=== PATIENT | female | born 1975 | race Caucasian/White ===

== ENCOUNTER → 2020-02-24 | Outpatient (CLI) | payer SELFPAY | PROVIDERS: Referring Provider Internal Medicine; Visit Provider Internal Medicine | DX: Z23 Encounter for immunization (principal) | CPT/HCPCS: 90471; 90686 ==

== ENCOUNTER → 2020-05-26 11:17 | Outpatient (CLI) | payer OTHER, SELFPAY ==
[2020-05-26] MEDS: COVID-19 VACC(MODERNA-1)/PF 100 MCG/0.5 ML VIAL IM (11:23)
== END ==
PROVIDERS: Visit Provider Internal Medicine
DX: Z23 Encounter for immunization (principal)
CPT/HCPCS: 0011A; 91301

== ENCOUNTER → 2020-06-21 15:08 | Outpatient (CLI) | payer OTHER, SELFPAY ==
[2020-06-21] MEDS: COVID-19 VACC #2, MRNA(MOD) 100 MCG/0.5 ML VIAL IM (15:14)
== END ==
PROVIDERS: Visit Provider Internal Medicine
DX: Z23 Encounter for immunization (principal)
CPT/HCPCS: 0012A; 91301

== ENCOUNTER → 2020-09-06 09:10 | Outpatient (CLI) | payer OTHER, SELFPAY ==
[2020-09-06 09:48] LABS: Hematocrit 37.3 % (36-46); Hemoglobin 12.8 g/dL (12.0-16.0); Mean Corpuscular HGB Conc 34.5 % (30-36); Mean Corpuscular Hemoglobin 30.8 PG (26-34); Mean Corpuscular Volume 89.4 fL (80-100); Platelet Count 268 X10^3/uL (150-400); Red Blood Cell Count 4.17 X10^6/uL (4.0-5.2); Red Cell Distribution Width 13.5 % (11.6-14.8); White Blood Cell Count 6.9 X10^3/uL (4.5-11.0)
[2020-09-06 10:05] LABS: Alanine Aminotransferase 15 IU/L (<35); Albumin 4.4 g/dL (3.5-5.0); Albumin Globulin Ratio 1.3 (1.0-2.8); Alkaline Phosphatase 110 U/L (38-126); Aspartate Aminotransferase 22 IU/L (14-36); BUN Creatinine Ratio 27.4 (6-22); Bilirubin Total 0.5 mg/dL (0.2-1.3); Blood Urea Nitrogen 17 mg/dL (7-17); Calcium 9.6 mg/dL (8.4-10.2); Carbon Dioxide 28 mmol/L (22-32); Chloride 104 mmol/L (98-107); Cholesterol 224 mg/dL (140-199); Estimated Glomerular Filt Rate > 60.0 mL/min (>60); Globulin 3.5 g/dL (1.7-4.1); Glucose 100 mg/dL (70-100); HDL Cholesterol 56 mg/dL (40-60); HEMOLYSIS < 15 (0-50); LDL Cholesterol Calculated 153 mg/dL (<100); Potassium 4.2 mmol/L (3.4-5.1); Sodium 140 mmol/L (137-145); Total Protein 7.9 g/dL (6.3-8.2); Triglycerides 73 mg/dL (35-150)
[2020-09-06 10:35] LABS: Free T4, Direct Thyroxine 1.12 ng/dL (0.78-2.19)
[2020-09-06 10:49] LABS: Thyroid Stimulating Hormone 2.36 uIU/mL (0.47-4.68)
== END ==
PROVIDERS: PCP Nurse Practitioner Family; Referring Provider Nurse Practitioner Family; Visit Provider Nurse Practitioner Family
DX: Z00.00 Encounter for general adult medical examination without abnormal findings (principal); E06.3 Autoimmune thyroiditis; Z13.6 Encounter for screening for cardiovascular disorders
CPT/HCPCS: 36415; 80053; 80061; 84439; 84443; 85027

== ENCOUNTER → 2020-11-07 15:01 | Outpatient (CLI) | payer OTHER, SELFPAY ==
--- NOTE | 2020-11-07 15:02 | DI.US.S_ITS ---
PROCEDURE: US PELVIC COMPLETE INDICATIONS: abnormal menses TECHNIQUE: Real-time scanning was performed of the pelvic organs, with image documentation. Additional endovaginal scanning was necessary due to incomplete visualization of the adnexal and endometrial structures by transabdominal scanning. COMPARISON: Outside Facility, RG, US PELVIC, 07/27/2018, 13:39. FINDINGS: Uterus: Uterus is anteverted measuring 8.9 x 6.9 x 5.5 cm. The endometrium measures 15.4mm in combined thickness. Multiple mild medial cysts are seen measuring up to 5 mm. There is increased vascularity on Doppler ultrasound in myometrium. Trace amount of anechoic fluid in the endocervical canal. Ovaries: Right ovary measures 3.3 x 2.0 x 2.4 cm. There is a dominant cyst in the right ovary measuring 1.9 x 1.6 cm. Left ovary is not visualized. Other: No pathologic free abdominal or pelvic fluid. IMPRESSION: 1. Thickened endometrium measuring 15.4 mm, which may be secondary to endometrial hyperplasia but endometrial neoplasm cannot be excluded. 2. Multiple myometrial cysts are present. There is increased vascularity in myometrium. The ultrasound findings suggest cystic adenomyosis. If clinically indicated, gynecological MRI may be helpful. 3. Right ovary is normal and contains a dominant follicle. Left ovary is not visualized. Dictated by: Stephen Sandhu M.D. on 11/07/2020 at 17:07 Approved by: Stephen Sandhu M.D. on 11/07/2020 at 17:17
== END ==
PROVIDERS: PCP Nurse Practitioner Family; Referring Provider Nurse Practitioner Family; Visit Provider Nurse Practitioner Family
DX: N92.0 Excessive and frequent menstruation with regular cycle (principal); R93.89 Abnormal findings on diagnostic imaging of other specified body structures; N85.8 Other specified noninflammatory disorders of uterus
CPT/HCPCS: 76830; 76856

== ENCOUNTER → 2021-02-01 13:25 | Outpatient (CLI) | payer OTHER, SELFPAY ==
[2021-02-01 14:02] LABS: COVID19 -Nasal RAPID Negative (Negative)
== END ==
PROVIDERS: PCP Nurse Practitioner Family; Visit Provider Specialist
DX: Z01.812 Encounter for preprocedural laboratory examination (principal); Z20.822 Contact with and (suspected) exposure to COVID-19
CPT/HCPCS: 87635

== ENCOUNTER 2021-02-02 08:34 | Day surgery (SDC) | payer OTHER, SELFPAY ==
[2021-02-01 07:51] VITALS: BMI 38.6
[2021-02-02] VITALS (19 sets, daily range): BP systolic 119–167; BP diastolic 65–92; PULSE 58–101; RESP 8–20; TEMP 36.2–37; O2SAT 94–100; BMI 38.6
--- NOTE | 2021-02-02 | PATH_ITS ---
[facility] Accession Number: [id number] . 01 Material submitted: . uterus - UTERUS, BILATERAL FALLOPIAN TUBES AND OVARIES . 01 Clinical history: . OPB . 02 Diagnosis: Uterus, Bilateral Fallopian Tubes and Ovaries, Supracervical Hysterectomy and Bilateral Salpingo-oophorectomy: 1. Adenomyosis. 2. Bilateral fallopian tubes with vascular congestion, consistent with prior procedure. 3. Bilateral ovaries with no diagnostic abnormality. 4. No evidence of malignancy or atypical hyperplasia. [facility] 02/06/2021 1115 Local . 02 Electronically signed: . Tess Olivarez MD, Pathologist NPI- [id number] . 01 Gross description: . The specimen is received in formalin, labeled uterus, bilateral fallopian tubes and ovaries, and consists of a 150 g fragmented uterus and detached ovaries and fallopian tubes. The uterus measures 13.0 x 10.0 x 7.0 cm in aggregate. The serosa is prasad-pink and smooth. A cervix is not identified. Sectioning reveals a prasad-pink endometrium measuring 0.1 cm in thickness. The myometrium is prasad-pink and trabeculated. There are two detached ovaries measuring 2.0 x 2.5 x 1.2 cm and 4.1 x 2.0 x 0.9 cm. The external surfaces are prasad cerebriform. Sectioning reveals multiple prasad-pink, smooth-walled, serous-filled cysts ranging from 0.1 cm to 1.4 cm. No papillary excrescences are identified. The smaller ovary has an attached fallopian tube measuring 5.0 cm in length by 0.8 cm in diameter. There is an additional detached fallopian tube measuring 5.0 cm in length by 0.8 cm in diameter. The serosa is prasad-pink to pink-purple and smooth with fibrinous adhesions and multiple paratubal cysts measuring 0.1 cm. Loom Checker sections are submitted. . A1-A5: Loom Checker uterus. A6: Loom Checker ovary with attached fallopian tube. A7: Loom Checker attached fallopian tube, central cross-sections, and bisected fimbriae. A8: Loom Checker sections of other ovary. A9: Loom Checker sections of detached fallopian tube, central cross-sections, and bisected fimbriae. ([id number]) /[facility] 02/03/2021 [facility] Local . 02 Pathologist provided ICD-10: N92.0 . 02 CPT . 499404 Performed at: 01 [facility] [address] [place] [address], [place], [place] [id number] MD Cristofer Milian MD Phone: [phone] Performed at: 02 [facility] [address] [place], [place] [id number] MD Tess Olivarez MD Phone: [phone]
--- NOTE | 2021-02-02 09:22 | PM.PREOP ---
Pre-operative Note COVID-19 COVID-19 status: Negative Result date/Date tested (Pos, Neg/Pending): 02/01/21 Interval Note History & Physical reviewed/Exam performed by Physician: Yes Changes to H&P: No
[2021-02-02] MEDS: ACETAMINOPHEN 325 MG TABLET 975 MG PO (09:27)
[2021-02-02] MEDS: LACTATED RINGERS 1,000 ML 42 ML IV (09:28)
[2021-02-02] MEDS: CEFAZOLIN 1 GM VIAL 2 GM IV (10:10)
--- NOTE | 2021-02-02 10:25 | SUR.OPER ---
Lithotomy on padded OR bed. Redfield Pad Positioner under torso. Head on pillow, arms padded and tucked at sides. Legs secured in padded yellow fins stirrups.
[2021-02-02] MEDS: ROPIVACAINE 0.2% PF 2 MG/ML 10ML AMP 10 ML INJ (10:30)
[2021-02-02] MEDS: EPINEPHrine 1 MG/ML 0.15 MG INJ (10:31)
[2021-02-02] MEDS: BUPIVACAINE 0.5% (PF) VIAL 30 ML INJ (10:32)
[2021-02-02] MEDS: LACTATED RINGERS 1,000 ML 100 ML IV ×3 (11:14→15:11)
--- NOTE | 2021-02-02 11:42 | P.OP_ITS ---
Operative Date/Time/Diagnoses Date of procedure: 02/02/21 Time of procedure: 11:42 Pre-op diagnosis: Menorrhagia and dysmenorrhea Post-op diagnosis: same Procedure & Clinicians Procedure: Laparoscopic supracervical hysterectomy with bilateral salpingo oophorectomy Same procedure as scheduled: Yes Indications: Patient with menorrhagia and dysmenorrhea requesting hysterectomy. Surgeon: Melissa Fitzgerald Clinical Trials Assistant: Jose Carlos Conrad Click Yes if Unassisted: No Anesthesia Type: General Operative Notes Findings: Enlarged boggy uterus, status post tubal ligation, possible endometr iosis, benign appearing left ovarian cyst. Normal appearing bowel surface, appendix, liver edge. Closure Type: primary Specimen(s): other (Uterus above the level of the bladder and bilateral tubes and ovaries) Estimated Blood Loss (mL): 20 Blood products transfused: none Procedure in detail: Patient is brought to the operating room where she underwent general anesthesia and placed in low [facility] stirrups. She was prepped and draped in the usual sterile fashion. A check list was reviewed with the staff in the room prior to beginning of the case. Patient had pulsatile stockings in place and functional. 2 g of Ancef were in prior to beginning of the case.. A Fonseca catheter was placed. A single-tooth tenaculum was placed on the anterior lip of the cervix and the cervix dilated to a #6 Hegar dilator. The uterine manipulator was placed through the cervix into the uterus with the balloon inflated with 3 mL of air. The area of the umbilical incision and the 5 mm right and left lower quadrant incisions were injected with Marcaine. An incision was made with scalpel. The verries needle was placed into the abdomen and confirmed in the appropriate place with withdrawal on a syringe and then free flow of fluid down through the needle. The abdomen was insufflated with CO2. The needle was removed and a 5 mm trocar placed without difficulty. There did not appear to be any damage is placement of the trocar. The right and left lower quadrant incisions were made with the scalpel and the trochars placed without damage to internal structures. The PK forceps were used to cauterize the infundibulopelvic ligaments. Sequential bites were taken along the broad ligament followed by the round ligaments on both sides. Sequential bites were taken down the broad ligaments. The uterine arteries were cauterized. An incision was made above the level bladder pushing the bladder away from the cervix. The ABDIAZIZ loop was placed around the uterus and the uterus was amputated above the level of the bladder. Bleeding was controlled with the PK forceps. The PK forceps were used to cauterize in the endocervical canal. A supracervical incision was made and an 11 mm port placed. A 15 mm Endo Catch bag was placed in the abdomen. The uterus, tubes and ovaries were placed in the bag and brought up through the suprapubic port site. The Girma O was placed. The uterus was hand morselized. The abdomen was reinsufflated and adequate hem ostasis was noted. 20 cc of ropivacaine were placed over the cervix stump. The trocars were removed and the CO2 allowed escape from the abdomen. The fascia layer of the suprapubic site was repaired with 0 Polysorb suture. Skin was closed with 4-0 Monocryl suture at the suprapubic site and the other 3 sites. The patient went to recovery room in good condition. Counts of instruments and sponges were correct. Dr. Conrad was present throughout the case to assist with holding the camera, retracting, cauterizing and cutting the structures on the left side of the patient, as well as assisting with morselization of the uterus. Complications: none Post-operative Condition: stable Disposition: Acute Care (Observation) Plan for aftercare: Home when ambulatory and tolerating regular diet
[2021-02-02] MEDS: LACTATED RINGERS 1,000 ML 120 ML IV (13:41)
--- NOTE | 2021-02-02 15:17 | PC.NURSE ---
Pt arrived at 1240 to room 222 via bed. Lethargic but A&OX3, on RA. LS CTA, BS +x4. x4 lap sites to abdomen C/D/I dressings. Celestina pad with scant amount of blood. Pt tolerating ice chips and juice denies n/v. VSS, on RA. LR at 100 ml/hr. Pt denies pain, or need for prn medications.
[2021-02-02] MEDS: KETOROLAC 30 MG/ML VIAL IV ×2 (15:47→22:00)
[2021-02-02] MEDS: ONDANSETRON 4 MG/2 ML INJ IV (15:49)
[2021-02-02] MEDS: DOCUSATE 100 MG CAPSULE 200 MG PO (20:06)
--- NOTE | 2021-02-02 23:32 | PC.NURSE ---
Patient is alert and oriented. Breath sounds CTA with RA sat of 98%. HRR w/BP consistently high and currently at 147/89. Denies nausea. BT hypoactive and denies passing flatus as yet. Denies dysuria, frequency or urgency with urination. Is able to move self in bed and is up to bathroom independently and is steady on feet. Bandaid dressings to abdomen intact with small spots of drainage on all except umbilical dressing. Chronic puffiness bilateral feet/ankles. Refuses SCD's so reminded to ankle wave when awake. Denies pain. Fall risk score is low.
[2021-02-03] MEDS: KETOROLAC 30 MG/ML VIAL IV (03:47)
[2021-02-03] MEDS: SODIUM CHLORIDE 0.9% FLUSH 10 ML IV (03:47)
[2021-02-03 04:35] VITALS: BP 131/71; PULSE 77; RESP 18; TEMP 37; O2SAT 97
[2021-02-03] MEDS: LEVOTHYROXINE 75 MCG TABLET PO (05:36)
[2021-02-03 05:38] LABS: Add Manual Diff / Slide Review NO; Basophils Absolute Auto 100 /uL (0-100); Basophils Percent Auto 0.6 % (0-2); Eosinophils Absolute Auto 0 /uL (0-450); Hematocrit 34.4 % (36-46); Hemoglobin 11.2 g/dL (12.0-16.0); Lymphocytes Absolute Auto 1600 /uL (1100-4500); Lymphocytes Percent Auto 11.8 % (25-40); Mean Corpuscular HGB Conc 32.5 % (30-36); Mean Corpuscular Hemoglobin 27.1 PG (26-34); Mean Corpuscular Volume 83.4 fL (80-100); Monocytes Absolute Auto 800 /uL (0-900); Neutrophils Absolute Auto 10800 /uL (1500-7000); Neutrophils Percent Auto 81.6 % (50-75); Platelet Count 278 X10^3/uL (150-400); Red Blood Cell Count 4.12 X10^6/uL (4.0-5.2); Red Cell Distribution Width 14.7 % (11.6-14.8); White Blood Cell Count 13.2 X10^3/uL (4.5-11.0)
[2021-02-03 07:00] VITALS: O2SAT 98
[2021-02-03 07:13] VITALS: BP 132/89; PULSE 80; RESP 18; TEMP 36.6; O2SAT 98
--- NOTE | 2021-02-03 09:11 | P.DS_ITS ---
History of Present Illness History of Present Illness Date Patient Seen: 02/03/21 Time Patient Seen: 09:11 Chief complaint: OPB Narrative: Patient underwent a laparoscopic supracervical hysterectomy with bilateral salpingoophorectomy on 02/02/2021. Discharge Providers Provider Discharge Date: 02/03/21 Primary care physician: RENATO Trevizo Discharge provider: Melissa Fitzgerald MD Summary Hospital Course Discharge Diagnosis: Menorrhagia and dysmenorrhea status post laparoscopic supracervical hysterectomy with bilateral salpingo oophorectomy. Hospital Course: Patient underwent a laparoscopic supracervical hysterectomy with bilateral salpingoophorectomy on 02/02/2021. She had some initial nausea and unsteadiness after surgery. She is now tolerating regular diet, urinating well, pain is minimal. Status at Discharge Cognitive/behavioral status at discharge: oriented Functional status at discharge: independent ambulation Overall status at discharge: patient is progressing back to baseline Time Spent with Patient Time spent: Less than 30 minutes Exam Vital Signs (past 8 hours): - 02/03/21 04:35 02/03/21 07:13 Temperature 98.6 F 97.9 F Pulse Rate 77 80 Respiratory Rate 18 18 Blood Pressure 131/71 132/89 Pulse Oximetry 97 98 Oxygen Delivery Method Room Air Oxygen Flow Rate 0 Narrative Exam Narrative: Abdomen is soft, nontender. Dressings are clean, dry, intact. Extremities without edema and nontender. Objective Labs Result Diagrams: 02/03/21 05:16 Labs: Laboratory Results - last 24 hr 02/03/21 05:16 WBC 13.2 H RBC 4.12 Hgb 11.2 L Hct 34.4 L MCV 83.4 MCH 27.1 MCHC 32.5 RDW 14.7 Plt Count 278 Neut % (Auto) 81.6 H Lymph % (Auto) 11.8 L Mason % (Auto) 6.0 Eos % (Auto) 0.0 L Baso % (Auto) 0.6 Neut # (Auto) 95599 H Lymph # (Auto) 1600 Mason # (Auto) 800 Eos # (Auto) 0 Baso # (Auto) 100 PFSH Medical History (Updated 11/07/20 @ 17:21 by RENATO Trevizo) Abnormal mammogram of left breast (04/2020) Acquired autoimmune hypothyroidism (2015) Encounter for routine gynecological examination (10/18/20) Encounter for wellness examination in adult (10/18/20) Endometrial thickening on ultrasound (10/2020) Heavy menses (03/2020) Mixed hyperlipidemia (08/2020) Ovarian cyst (10/2020) Surgical History (Updated 02/02/21 @ 11:39 by Melissa Fitzgerald MD) Anesthesia History of tonsillectomy History of tubal ligation Family History (Updated 09/27/20 @ 18:53 by Shaniqua Larsen) Father History of heart disease Mother Hyperlipidemia Hypertension Grandfather History of heart disease Hypertension Hyperlipidemia Grandmother History of heart disease Hyperlipidemia Hypertension Grandfather History of heart disease Grandmother Hypertension Hyperlipidemia Social History household members: family Smoking Status: Never smoker second hand exposure: No alcohol intake: never substance use type: does not use Discharge Assessment & Plan Assessment and Plan Assessment: Status post laparoscopic supracervical hysterectomy with bilateral salpingo oophorectomy doing well Plan of Treatment: Discharge home to follow-up in 1 week. Precautions reviewed with the patient. Discharge Plan Discharge Plan Patient Disposition: Home Discharge orders & Medications Discharge Orders: Discharge (Order); Ordered 02/03/21 Ordered By: Melissa Fitzgerald Prescriptions: Continued levothyroxine 75 mcg tablet 75 mcg PO DAILY Qty: 90 RF: 2 estradiol 1 mg tablet 1 mg PO DAILY Qty: 30 RF: 11 oxycodone-acetaminophen 5-325 mg tablet 1 tab PO Q4-6H PRN (Reason: pain) Qty: 30 RF: 0 ibuprofen 100 mg Tablet 200 mg PO Q6H PRN (Reason: Pain (Scale Score 7-10)) RF: 0 Follow up/Referrals: Mya Husain ARNP [Primary Care Provider] - Melissa Fitzgerald MD [Physician] - As previously scheduled ( 02/08/2021) Diet/Activity/Treatments Diet: Regular Activity: No restrictions Skin/Wound/Dressing Care Report to your healthcare provider any signs of infection, such as:: chills, fever, night sweats and unusual redness Visit Report/Discharge Packet Instructions: DI for Hysterectomy, DI for Laparoscopy Discharge Data Primary Care Provider: Mya Husain Attending Provider: Melissa Fitzgerald
[2021-02-03 09:22] VITALS: O2SAT 100
[2021-02-03] MEDS: DOCUSATE 100 MG CAPSULE 200 MG PO (09:27)
--- NOTE | 2021-02-03 10:24 | PC.NURSE ---
Discharge note: pt home today, Dr Fitzgerald came in to see her already. IV discontinued. Discharge packet printed and reviewed with patient, including activity restrictions. care of lap sites, follow up appt, safety while taking narcotic pain meds, constipation associated with pain med use. Instructed on which meds to continue. Left acute care in stable condition. Mom in car, driving patient home. Pt already had her mom pick up driver her discharge medications (Oxycodone).
--- NOTE | 2021-02-03 11:05 | CM.DANOTE ---
DCP: Case received, EMR reviewed and met with patient. Introduced self and role. Was able to obtain information regarding patient's baseline activity prior to hospitalization. DCP assessment completed with information currently available. Patient is a 45 year old female who admitted yesterday morning to the care of the hospitalist team. PCP: RENATO Trevizo. Provider: [facility]. Patient came to the hospital for a surgical procedure. She had a laparoscopic supra cervical hysterectomy. Patient has had history of menorrhagia with dysmenorrha. Met with patient in her room. She was sitting up in her chair, ready to go home. 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 She stated that she lives here in [place] with her mother, Sandra Suarez, who is a nurse and will be assisting her for any needs when she goes home. Patient is originally from [place], but wanted to be near her mother. P: Patient is to be discharged home today with no needs. Rosa Weller RN/Mining And Quarrying Machinery Repairer Discharge Planning/Care Management Advanced directive, confirm from FAMILY Start: 02/02/21 13:38 Freq: Q24H Status: Discharge Protocol: Document 02/02/21 13:38 AGW (Rec: 02/02/21 18:40 AGW [id number]) Advance Directive, confirm on record Time 16:00 Person contacted patient Copy received No CM Discharge Assessment Start: 02/03/21 11:03 Freq: Status: Active Protocol: Document 02/03/21 11:03 (Rec: 02/03/21 11:05 [id number]) Discharge Planning Assessment Assigned Mold Press Operator Rosa Weller RN/Mining And Quarrying Machinery Repairer Advance Directives? No Advance Directives on File No History Provided By Patient,Medical Record Prior Living Arrangements Apartment/Condo Household Members family Type of transporation used prior to Drives own vehicle admit Independent with ADL's Yes Is patient alert and oriented? Yes Caregiver for Another No Barriers to Discharge No Discharge Plan Home Transportation Arrangement Mother Referrals Initiated None needed Whiteboard Updated in Patient Room with Yes name and ext. # of Mold Press Operator Review Status In Process Next Review Type Continued Stay Review Pre-Anesthesia Assessment Start: 02/01/21 07:51 Freq: Status: Complete Protocol: Document 02/01/21 07:51 CAB (Rec: 02/01/21 08:25 [facility] [id number]) Pre-Anesthesia Assessment Patient Information Reviewed Via Chart Review Comment COVID screen @ 02/01/21 Primary Care Provider Mya Husain Seen Specialist in Last 12 Months Yes Specialist Seen Hat Body Sorter Primary Language Brazilian Kennel Operator Required No Height 5 ft 8.5 in Weight 258 lb Body Mass Index (BMI) 38.6 Barriers to Learning None Hx Anesthesia Reactions Surgical history not identified Anesthesia Review Requested No Capacity Planning Manager No alcohol intake never Smoking Status Never smoker History of Falling (Recent or History of No ) Patient is completely paralyzed or No completely immobile Mental Status Oriented to own ability Is patient on oxygen? No Hx Sleep Apnea No Currently Taking a Beta Luisa No Anti-Coagulant Therapy No Has a Clerical Administrator No Cardiac Testing No Hx Pacemaker/ICD No Pacemaker Rep Required? No Cardiac Clearance Received Not Applicable Urinary Catheter Present No Hx Urinary Self Catheterization No Diabetes No Patient No Lactating No Marital Status Single Patient Discharge Plan Description Return Home
== END 2021-02-03 09:30 | disposition home or self-care (01) ==
LOC: OR 08:35 → AC 08:36
PROVIDERS: PCP Nurse Practitioner Family; Referring Provider Specialist; Visit Provider Specialist
PROC: 0UT94ZL Resection of Uterus, Supracervical, Percutaneous Endoscopic Approach (ICD-10-PCS; CPT 58542; principal; 2021-02-02 09:45)
DX: N80.0 Endometriosis of uterus (principal); N92.0 Excessive and frequent menstruation with regular cycle; N94.6 Dysmenorrhea, unspecified; E78.2 Mixed hyperlipidemia
CPT/HCPCS: 58542; 36415; 81025; 85025; 94760; J0171; J0330; J0690; J1100; J1885; J2250; J2405; J2704; J2795; J3010

== ENCOUNTER → 2021-03-01 | Outpatient (CLI) | payer OTHER, SELFPAY ==
[2021-02-02 13:31] VITALS: BMI 38.6
== END ==
PROVIDERS: PCP Nurse Practitioner Family; Referring Provider Internal Medicine; Visit Provider Internal Medicine
DX: Z23 Encounter for immunization (principal)
CPT/HCPCS: 90471; 90686

== ENCOUNTER → 2021-03-23 15:08 | Outpatient (CLI) | payer OTHER, SELFPAY ==
[2021-02-02 13:31] VITALS: BMI 38.6
[2021-03-23] MEDS: COVID-19 VACC #3, MRNA(MOD) 50 MCG/0.25 ML VIAL IM (15:11)
== END ==
PROVIDERS: PCP Nurse Practitioner Family; Visit Provider Internal Medicine
DX: Z23 Encounter for immunization (principal)
CPT/HCPCS: 0013A; 91301

== ENCOUNTER → 2021-12-12 07:12 | Outpatient (CLI) | payer OTHER, SELFPAY ==
[2021-02-02 13:31] VITALS: BMI 38.6
[2021-12-12 07:46] LABS: Hematocrit 36.2 % (36-46); Hemoglobin 12.5 g/dL (12.0-16.0); Mean Corpuscular HGB Conc 34.5 % (30-36); Mean Corpuscular Hemoglobin 29.6 PG (26-34); Mean Corpuscular Volume 85.7 fL (80-100); Platelet Count 264 X10^3/uL (150-400); Red Blood Cell Count 4.22 X10^6/uL (4.0-5.2); Red Cell Distribution Width 14.7 % (11.6-14.8); White Blood Cell Count 7.7 X10^3/uL (4.5-11.0)
[2021-12-12 09:36] LABS: Alanine Aminotransferase 19 IU/L (<35); Albumin 4.2 g/dL (3.5-5.0); Albumin Globulin Ratio 1.3 (1.0-2.8); Alkaline Phosphatase 112 U/L (38-126); Aspartate Aminotransferase 22 IU/L (14-36); BUN Creatinine Ratio 27.3 (6-22); Bilirubin Total 0.5 mg/dL (0.2-1.3); Blood Urea Nitrogen 18 mg/dL (7-17); Calcium 8.8 mg/dL (8.4-10.2); Carbon Dioxide 24 mmol/L (22-32); Chloride 106 mmol/L (98-107); Cholesterol 206 mg/dL (140-199); Estimated Glomerular Filt Rate > 60 mL/min (>60); Globulin 3.2 g/dL (1.7-4.1); Glucose 101 mg/dL (70-100); HDL Cholesterol 52 mg/dL (40-60); HEMOLYSIS < 15 (0-50); LDL Cholesterol Calculated 129 mg/dL (<100); Potassium 4.4 mmol/L (3.4-5.1); Sodium 141 mmol/L (137-145); Total Protein 7.4 g/dL (6.3-8.2); Triglycerides 127 mg/dL (35-150)
[2021-12-12 10:07] LABS: TSH w/ Reflex to FT4 4.09 uIU/mL (0.47-4.68)
== END ==
PROVIDERS: PCP Registered Nurse Diabetes Educator; Referring Provider Registered Nurse Diabetes Educator; Visit Provider Registered Nurse Diabetes Educator
DX: E06.3 Autoimmune thyroiditis (principal); E78.2 Mixed hyperlipidemia
CPT/HCPCS: 36415; 80053; 80061; 84443; 85027

== ENCOUNTER → 2022-01-29 14:56 | Outpatient (CLI) | payer OTHER, SELFPAY ==
[2021-02-02 13:31] VITALS: BMI 38.6
--- NOTE | 2022-01-29 14:57 | DI.MG.S_ITS ---
BILATERAL DIGITAL SCREENING MAMMOGRAM 3D/2D WITH CAD: 01/29/2022 CLINICAL: Routine screening. Comparison is made to exams dated: 07/21/2019 mammogram, 07/15/2019 mammogram, 12/13/2017 mammogram, and 07/14/2012 mammogram - outside. There are scattered areas of fibroglandular density in both breasts (category b / 25%-50% glandular tissue). Current study was also evaluated with a Computer Aided Detection (CAD) system. No significant masses, calcifications, or other findings are seen in either breast. There has been no significant interval change. IMPRESSION: NEGATIVE There is no mammographic evidence of malignancy. A 1 year screening mammogram is recommended. Based on the Tyrer Cuzick model (a risk assessment model) the patient's lifetime risk is 5.3% and her 10 year risk is 1.1%. According to the ACR, ACS, and NCCN guidelines, an annual breast MRI exam along with mammogram is recommended if the patient's lifetime risk is 20% or greater. This exam was interpreted at Station ID: [id number]. NOTE: For mammograms, a report in lay terms will be sent to the patient. Approximately 15% of breast malignancies will not be visualized mammographically. In the management of a palpable breast mass, a negative mammogram must not discourage biopsy of a clinically suspicious lesion. Electronically Signed By: Wilner henley/hilda:01/31/2022 07:06:56 letter sent: Normal Exam ACR BI-RADS Category 1: Negative 3341F
== END ==
PROVIDERS: PCP Registered Nurse Diabetes Educator; Referring Provider Registered Nurse Diabetes Educator; Visit Provider Registered Nurse Diabetes Educator
DX: Z12.31 Encounter for screening mammogram for malignant neoplasm of breast (principal)
CPT/HCPCS: 77063; 77067

== ENCOUNTER → 2022-03-29 13:06 | Outpatient (CLI) | payer OTHER, SELFPAY ==
[2021-02-02 13:31] VITALS: BMI 38.6
== END ==
PROVIDERS: PCP Registered Nurse Diabetes Educator; Referring Provider Internal Medicine; Visit Provider Internal Medicine
DX: Z23 Encounter for immunization (principal)
CPT/HCPCS: 90471; 90686

== ENCOUNTER → 2022-08-07 06:59 | Outpatient (CLI) | payer OTHER, SELFPAY ==
[2021-02-02 13:31] VITALS: BMI 38.6
[2022-08-07 08:25] LABS: Hematocrit 40.1 % (36-46); Hemoglobin 13.4 g/dL (12.0-16.0); Mean Corpuscular HGB Conc 33.3 % (30-36); Mean Corpuscular Hemoglobin 29.4 PG (26-34); Mean Corpuscular Volume 88.4 fL (80-100); Platelet Count 247 X10^3/uL (150-400); Red Blood Cell Count 4.54 X10^6/uL (4.0-5.2); Red Cell Distribution Width 14.4 % (11.6-14.8); White Blood Cell Count 6.6 X10^3/uL (4.5-11.0)
[2022-08-07 09:08] LABS: Alanine Aminotransferase 17 IU/L (<35); Albumin 4.3 g/dL (3.5-5.0); Albumin Globulin Ratio 1.1 (1.0-2.8); Alkaline Phosphatase 104 U/L (38-126); Aspartate Aminotransferase 21 IU/L (14-36); BUN Creatinine Ratio 27.4 (6-22); Bilirubin Total 0.7 mg/dL (0.2-1.3); Blood Urea Nitrogen 17 mg/dL (7-17); Calcium 9.1 mg/dL (8.4-10.2); Carbon Dioxide 29 mmol/L (22-32); Chloride 102 mmol/L (98-107); Cholesterol 224 mg/dL (140-199); Estimated Glomerular Filt Rate > 60 mL/min (>60); Globulin 3.9 g/dL (1.7-4.1); Glucose 98 mg/dL (70-100); HDL Cholesterol 42 mg/dL (40-60); HEMOLYSIS < 15 (0-50); LDL Cholesterol Calculated 159 mg/dL (<100); Potassium 4.3 mmol/L (3.4-5.1); Sodium 140 mmol/L (137-145); Total Protein 8.2 g/dL (6.3-8.2); Triglycerides 113 mg/dL (35-150)
[2022-08-07 09:41] LABS: TSH w/ Reflex to FT4 4.42 uIU/mL (0.47-4.68)
== END ==
PROVIDERS: PCP Registered Nurse Diabetes Educator; Referring Provider Registered Nurse Diabetes Educator; Visit Provider Registered Nurse Diabetes Educator
DX: E06.3 Autoimmune thyroiditis (principal); E78.2 Mixed hyperlipidemia; R73.01 Impaired fasting glucose
CPT/HCPCS: 36415; 80053; 80061; 84443; 85027

== ENCOUNTER → 2023-01-08 13:12 | Outpatient (CLI) | payer OTHER, SELFPAY ==
[2021-02-02 13:31] VITALS: BMI 38.6
[2023-01-08 14:48] LABS: BUN Creatinine Ratio 26.9 (6-22); Blood Urea Nitrogen 18 mg/dL (7-17); Calcium 9.3 mg/dL (8.4-10.2); Carbon Dioxide 28 mmol/L (22-32); Chloride 101 mmol/L (98-107); Estimated Glomerular Filt Rate > 60 mL/min (>60); Glucose 92 mg/dL (70-100); HEMOLYSIS < 15 (0-50); Potassium 3.7 mmol/L (3.4-5.1); Sodium 136 mmol/L (137-145)
== END ==
PROVIDERS: PCP Registered Nurse Diabetes Educator; Referring Provider Registered Nurse Diabetes Educator; Visit Provider Registered Nurse Diabetes Educator
DX: I10 Essential (primary) hypertension (principal)
CPT/HCPCS: 36415; 80048

== ENCOUNTER → 2023-04-08 13:51 | Outpatient (CLI) | payer OTHER, SELFPAY ==
[2021-02-02 13:31] VITALS: BMI 38.6
--- NOTE | 2023-04-08 13:53 | DI.MG.S_ITS ---
BILATERAL DIGITAL SCREENING MAMMOGRAM 3D/2D WITH CAD: 04/08/2023 CLINICAL: Routine screening. Comparison is made to exams dated: 01/29/2022 mammogram - [facility], 07/21/2019 mammogram, 07/15/2019 mammogram, and 12/13/2017 mammogram - outside. There are scattered areas of fibroglandular density in both breasts (category b / 25%-50% glandular tissue). Current study was also evaluated with a Computer Aided Detection (CAD) system. No significant masses, calcifications, or other findings are seen in either breast. There has been no significant interval change. IMPRESSION: NEGATIVE There is no mammographic evidence of malignancy. A 1 year screening mammogram is recommended. Based on the Tyrer Cuzick model (a risk assessment model) the patient's lifetime risk is 5.3% and her 10 year risk is 1.2%. According to the ACR, ACS, and NCCN guidelines, an annual breast MRI exam along with mammogram is recommended if the patient's lifetime risk is 20% or greater. This exam was interpreted at Station ID: [id number]. NOTE: For mammograms, a report in lay terms will be sent to the patient. Approximately 15% of breast malignancies will not be visualized mammographically. In the management of a palpable breast mass, a negative mammogram must not discourage biopsy of a clinically suspicious lesion. Electronically Signed By: Martin navarro/hilda:04/09/2023 08:47:54 letter sent: Normal Exam ACR BI-RADS Category 1: Negative 3341F
== END ==
PROVIDERS: PCP Registered Nurse Diabetes Educator; Referring Provider Registered Nurse Diabetes Educator; Visit Provider Registered Nurse Diabetes Educator
DX: Z12.31 Encounter for screening mammogram for malignant neoplasm of breast (principal)
CPT/HCPCS: 77063; 77067

== ENCOUNTER → 2023-04-18 11:58 | Outpatient (CLI) | payer OTHER, SELFPAY ==
[2021-02-02 13:31] VITALS: BMI 38.6
== END ==
PROVIDERS: PCP Registered Nurse Diabetes Educator; Referring Provider Family Medicine; Visit Provider Family Medicine
DX: Z23 Encounter for immunization (principal)
CPT/HCPCS: 90471; 90686

== ENCOUNTER → 2023-07-28 06:44 | Outpatient (CLI) | payer OTHER, SELFPAY ==
[2021-02-02 13:31] VITALS: BMI 38.6
[2023-07-28 08:14] LABS: Hematocrit 39.7 % (36-46); Hemoglobin 13.6 g/dL (12.0-16.0); Mean Corpuscular HGB Conc 34.3 % (30-36); Mean Corpuscular Hemoglobin 30.9 PG (26-34); Mean Corpuscular Volume 90.1 fL (80-100); Platelet Count 245 X10^3/uL (150-400); Red Cell Distribution Width 13.1 % (11.6-14.8); White Blood Cell Count 5.5 X10^3/uL (4.5-11.0)
[2023-07-28 08:46] LABS: Alanine Aminotransferase 16 IU/L (<35); Albumin 4.4 g/dL (3.5-5.0); Albumin Globulin Ratio 1.3 (1.0-2.8); Alkaline Phosphatase 97 U/L (38-126); Aspartate Aminotransferase 22 IU/L (14-36); BUN Creatinine Ratio 25.4 (6-22); Bilirubin Total 0.8 mg/dL (0.2-1.3); Blood Urea Nitrogen 18 mg/dL (7-17); Calcium 9.7 mg/dL (8.4-10.2); Carbon Dioxide 27 mmol/L (22-32); Chloride 108 mmol/L (98-107); Cholesterol 212 mg/dL (140-199); Estimated Glomerular Filt Rate > 60 mL/min (>60); Globulin 3.4 g/dL (1.7-4.1); Glucose 101 mg/dL (70-100); HDL Cholesterol 59 mg/dL (40-60); HEMOLYSIS < 15 (0-50); LDL Cholesterol Calculated 138 mg/dL (<100); Potassium 4.3 mmol/L (3.4-5.1); Sodium 141 mmol/L (137-145); Total Protein 7.8 g/dL (6.3-8.2); Triglycerides 75 mg/dL (35-150)
[2023-07-28 09:17] LABS: TSH w/ Reflex to FT4 2.53 uIU/mL (0.47-4.68)
== END ==
LOC: LAB 06:44
PROVIDERS: PCP Registered Nurse Diabetes Educator; Referring Provider Registered Nurse Diabetes Educator; Visit Provider Registered Nurse Diabetes Educator
DX: I10 Essential (primary) hypertension (principal); E06.3 Autoimmune thyroiditis; E78.5 Hyperlipidemia, unspecified
CPT/HCPCS: 36415; 80053; 80061; 84443; 85027

== ENCOUNTER 2023-12-05 12:41 | Day surgery (SDC) | payer OTHER, SELFPAY ==
[2021-02-02 13:31] VITALS: BMI 38.6
[2023-12-05 12:59] VITALS: BP 125/78; PULSE 82; RESP 14; TEMP 36.7; O2SAT 99
[2023-12-05] MEDS: LACTATED RINGERS 1,000 ML 42 ML IV (13:09)
--- NOTE | 2023-12-05 13:56 | P.HP_ITS ---
History of Present Illness History of Present Illness Date Patient Seen: 12/05/23 Time Patient Seen: 13:56 Chief complaint: [facility] Narrative: 47-year-old woman here for 1st time routine screening colonoscopy. No family history of colon cancer. No abdominal concerns today. [facility] Medical History Essential hypertension Ovarian cyst (10/2020) Endometrial thickening on ultrasound (10/2020) Encounter for wellness examination in adult (10/18/20) Encounter for routine gynecological examination (10/18/20) Heavy menses (03/2020) Mixed hyperlipidemia (08/2020) Abnormal mammogram of left breast (04/2020) Acquired autoimmune hypothyroidism (2015) Surgical History Anesthesia History of tubal ligation History of tonsillectomy Family History Father History of heart disease Mother Hyperlipidemia Hypertension Grandfather History of heart disease Hypertension Hyperlipidemia Grandmother History of heart disease Hyperlipidemia Hypertension Grandfather History of heart disease Grandmother Hypertension Hyperlipidemia Social History household members: family Smoking Status: Never smoker second hand exposure: No alcohol intake: never substance use type: does not use Meds Home Medications and Allergies Home Medications Medication Instructions Recorded Confirmed Type amlodipine 5 mg-benazepril 20 mg 1 cap PO DAILY #90 caps 08/13/23 12/05/23 Rx capsule levothyroxine 75 mcg tablet 75 mcg PO DAILY #90 tabs 08/13/23 12/05/23 Rx sodium,potassium,mag sulfates 17.5 See Rx Instructions PO .COMPLEX 10/27/23 12/05/23 Rx gram-3.13 gram-1.6 gram oral soln #354 mL (Suprep Bowel Prep Kit) Allergies Allergy/AdvReac Type Severity Reaction Status Date / Time No Known Drug Allergies Allergy Verified 12/05/23 12:58 Exam Vital Signs (past 8 hours): - 12/05/23 12:59 Temperature 98.1 F Pulse Rate 82 Respiratory Rate 14 Blood Pressure 125/78 Pulse Oximetry 99 Oxygen Delivery Method Room Air Oxygen Delivery Method Room Air Narrative Exam Narrative: General adult woman alert oriented no acute distress Chest nonlabored respiration Extremities warm well perfused Assessment & Plan Assessment & Plan narrative: The patient requires colorectal screening and colonoscopy is recommended. Technical details were discussed. Risks, benefits, alternatives explained. Risks including but not limited to myocardial infarction, aspiration, bleeding, pain, missed lesion, incomplete examination, need for further radiographic studies, intestinal injury, and need for major abdominal surgery were discussed. All questions were answered to their satisfaction, and they are in agreement with this plan. Time-Based Coding :: [TOTAL MINUTES] spent with patient and on the chart (including review of chart, obtaining history, exam, reviewing outside data, placing orders, documenting exam and treatment plan, and counseling patient) on [DATE].
[2023-12-05 14:37] VITALS: BP 131/86; PULSE 70; RESP 16; TEMP 37.4; O2SAT 100
--- NOTE | 2023-12-05 14:41 | P.OP.COLON_ITS ---
Operative Date/Time/Diagnoses Date of procedure: 12/05/23 Time of procedure: 14:41 Pre-op diagnosis: Colorectal screening Procedure & Clinicians Study performed: Screening colonoscopy Same procedure as scheduled: Yes Indications: Colorectal screening Surgeon: Eric Holt Procedure Notes Procedure in detail: The history and physical was performed/updated and the patient is ASA class is 2. The procedure was discussed in detail with the patient. Potential risks co mplications including infection, bleeding, missed diagnosis, perforation, need for surgery, and were explained. Their questions were answered and informed consent was obtained. Patient was brought to the procedure room and placed standard monitoring equipment. The patient's vital signs were monitored continuously throughout the entire procedure. Prior to starting time-out was performed. The patient was placed in the left lateral recumbent position. Procedural sedation was administered by anesthesia. Examination began with a thorough inspection of the perianal area there was no evidence of fissures, fistulae, external hemorrhoids or cutaneous malignancy. The colonoscopy scope was then placed into the anal canal and was advanced to the cecum, which was identified by the ileocecal valve, the appendiceal orifice and the confluence of the taenia. The scope was then slowly withdrawn examining colon thoroughly in all directions, irrigating it of any residual stool. The scope was retroflexed within the rectum The patient tolerated the procedure well. They will be discharged once criteria are met. The prep was of good/excellent quality. The withdrawl time was 7 minutes. FINDINGS * Unremarkable colonoscopy. No mass polyps or inflammation. Specimen(s): none sent Impression: Normal colonoscopy Post-procedure Recommendations: Colonoscopy in 10 years Disposition: same day surgery
[2023-12-05 14:42] VITALS: BP 130/83; PULSE 70; RESP 20; O2SAT 100
[2023-12-05 14:47] VITALS: BP 136/84; PULSE 68; RESP 16; O2SAT 100
[2023-12-05 14:51] VITALS: BP 144/86; PULSE 60; RESP 12; TEMP 36.5; O2SAT 100
== END 2023-12-05 15:06 | disposition home or self-care (01) ==
PROVIDERS: PCP Registered Nurse Diabetes Educator; Referring Provider Surgery; Visit Provider Surgery
PROC: 0DJD8ZZ Inspection of Lower Intestinal Tract, Via Natural or Artificial Opening Endoscopic (ICD-10-PCS; CPT 45378; principal; 2023-12-05 13:45)
DX: Z12.11 Encounter for screening for malignant neoplasm of colon (principal)
CPT/HCPCS: 45378; J2704

== ENCOUNTER → 2024-03-12 16:45 | Outpatient (CLI) | payer OTHER, SELFPAY ==
[2021-02-02 13:31] VITALS: BMI 38.6
== END ==
PROVIDERS: PCP Family Medicine; Referring Provider Internal Medicine; Visit Provider Internal Medicine
DX: Z23 Encounter for immunization (principal)
CPT/HCPCS: 90471; 90656

== ENCOUNTER → 2024-04-09 14:33 | Outpatient (CLI) | payer OTHER, SELFPAY ==
[2021-02-02 13:31] VITALS: BMI 38.6
--- NOTE | 2024-04-09 14:34 | DI.MG.S_ITS ---
BILATERAL DIGITAL SCREENING MAMMOGRAM 3D/2D WITH CAD: 04/09/2024 CLINICAL: Routine screening. Comparison is made to exams dated: 04/08/2023 mammogram, 01/29/2022 mammogram - [facility], and 07/21/2019 mammogram - outside. There are scattered areas of fibroglandular density (category b / 25%-50% glandular tissue). Current study was also evaluated with a Computer Aided Detection (CAD) system. No significant masses, calcifications, or other findings are seen in either breast. There has been no significant interval change. IMPRESSION: NEGATIVE There is no mammographic evidence of malignancy. A 1 year screening mammogram is recommended. Based on the Tyrer Cuzick model (a risk assessment model) the patient's lifetime risk is 5.3% and her 10 year risk is 1.2%. According to the ACR, ACS, and NCCN guidelines, an annual breast MRI exam along with mammogram is recommended if the patient's lifetime risk is 20% or greater. This exam was interpreted at Station ID: [id number]. NOTE: For mammograms, a report in lay terms will be sent to the patient. Approximately 15% of breast malignancies will not be visualized mammographically. In the management of a palpable breast mass, a negative mammogram must not discourage biopsy of a clinically suspicious lesion. Electronically Signed By: Shelley [email or web address]/[email or web address]:04/16/2024 10:57:13 letter sent: Normal Exam ACR BI-RADS Category 1: Negative
== END ==
PROVIDERS: PCP Family Medicine; Referring Provider Family Medicine; Visit Provider Family Medicine
DX: Z12.31 Encounter for screening mammogram for malignant neoplasm of breast (principal)
CPT/HCPCS: 77063; 77067

== ENCOUNTER → 2024-10-07 07:01 | Outpatient (CLI) | payer OTHER, SELFPAY ==
[2021-02-02 13:31] VITALS: BMI 38.6
[2024-10-07 07:42] LABS: Add Manual Diff / Slide Review NO; Basophils Absolute Auto 0 /uL (0-100); Basophils Percent Auto 0.7 % (0-2); Eosinophils Absolute Auto 200 /uL (0-450); Eosinophils Percent Auto 3.6 % (2-4); Hematocrit 39.5 % (36-46); Hemoglobin 13.6 g/dL (12.0-16.0); Lymphocytes Absolute Auto 1700 /uL (1100-4500); Lymphocytes Percent Auto 27.1 % (25-40); Mean Corpuscular HGB Conc 34.3 % (30-36); Mean Corpuscular Hemoglobin 31.2 PG (26-34); Mean Corpuscular Volume 90.9 fL (80-100); Monocytes Absolute Auto 400 /uL (0-900); Monocytes Percent Auto 6.6 % (3-14); Neutrophils Absolute Auto 3900 /uL (1500-7000); Platelet Count 248 X10^3/uL (150-400); Red Blood Cell Count 4.35 X10^6/uL (4.0-5.2); White Blood Cell Count 6.3 X10^3/uL (4.5-11.0)
[2024-10-07 07:55] LABS: Hemoglobin A1C% w Est Avg Glu 5.1 % (4.0-6.0)
[2024-10-07 08:08] LABS: Alanine Aminotransferase 19 IU/L (<35); Albumin 4.7 g/dL (3.5-5.0); Albumin Globulin Ratio 1.5 (1.0-2.8); Alkaline Phosphatase 90 U/L (38-126); Aspartate Aminotransferase 23 IU/L (14-36); BUN Creatinine Ratio 26.6 (6-22); Bilirubin Total 0.9 mg/dL (0.2-1.3); Blood Urea Nitrogen 21 mg/dL (7-17); Calcium 9.7 mg/dL (8.4-10.2); Carbon Dioxide 28 mmol/L (22-32); Chloride 103 mmol/L (98-107); Cholesterol 250 mg/dL (140-199); Estimated Glomerular Filt Rate > 60 mL/min (>60); Globulin 3.1 g/dL (1.7-4.1); Glucose 96 mg/dL (70-99); HDL Cholesterol 62 mg/dL (40-60); HEMOLYSIS < 15 (0-50); LDL Cholesterol Calculated 172 mg/dL (<100); Potassium 4.3 mmol/L (3.4-5.1); Sodium 139 mmol/L (137-145); Total Protein 7.8 g/dL (6.3-8.2); Triglycerides 82 mg/dL (35-150)
== END ==
PROVIDERS: PCP Family Medicine; Referring Provider Family Medicine; Visit Provider Family Medicine
DX: I10 Essential (primary) hypertension (principal); E78.2 Mixed hyperlipidemia; E06.3 Autoimmune thyroiditis; Z13.1 Encounter for screening for diabetes mellitus; E78.5 Hyperlipidemia, unspecified
CPT/HCPCS: 36415; 80053; 80061; 83036; 84443; 85025